=== PATIENT | male | born 1970 | race African-American/Black ===

== ENCOUNTER 2023-05-18 06:55 | Emergency (ER) | payer OTHER, SELFPAY ==
[2023-05-18] VITALS (27 sets, daily range): BP systolic 91–121; BP diastolic 59–78; PULSE 70–89; RESP 18; TEMP 36.6; O2SAT 89–99; BMI 21.7
--- NOTE | 2023-05-18 07:21 | CRLHL7_ITS ---
For Patients: As a result of the Century Cures Act, medical imaging exams and procedure reports are released immediately into your electronic medical record. You may view this report before your referring provider. If you have questions, please contact your health care provider. INDICATION: Chest pain. TECHNIQUE: Chest 2 views. COMPARISON: None. FINDINGS: Cardiovascular and mediastinum: Heart size and vasculature are normal in caliber and appearance. Lungs and pleural spaces: Coalescent airspace opacities in the right upper lung and perihilar right midlung as well as the left peripheral midlung superimposed upon a background of diffuse bilateral reticular opacities, the latter consistent with fibrosis. Bones and soft tissues: No significant findings. IMPRESSION: Bilateral multifocal airspace opacities consistent with pneumonia in the correct clinical setting. These findings are nonspecific, however. Clinical correlation is recommended. Follow-up chest radiographs are suggested in 6-8 weeks to document clearing. If there are no clinical findings to corroborate a diagnosis of pneumonia consider CT. Dictated by Jairo Alegria MD @ 05/18/2023 9:02:05 AM (Electronically Signed)
--- NOTE | 2023-05-18 07:27 | ED_ITS ---
HPI - Chest Pain General Chief Complaint: Chest Pain <Orin Garcia MD - Last Filed: 05/19/23 00:01> Stated Complaint: Chest pain <Orin Garcia MD - Last Filed: 05/19/23 00:01> Time Seen by Provider: 05/18/23 07:04 <Orin Garcia MD - Last Filed: 05/19/23 00:01> Source: patient and family <Orin Garcia MD - Last Filed: 05/19/23 00:01> Mode of arrival: ambulatory <Orin Garcia MD - Last Filed: 05/19/23 00:01> Limitations: language barrier (Daughter acts as medical instrument technician per patient request) <Orin Garcia MD - Last Filed: 05/19/23 00:01> History of Present Illness HPI narrative: 52-year-old male who reports a prior history of similar symptoms presents to the emergency department for 2 days of chest pain accompanied by shortness of breath. Chest discomfort started while at work 2 nights ago. Chest pain is in the central chest, radiating to the lateral left ribs. I do not think he is clearly understanding when I ask about exertional verses not exertional symptoms. He admits that he cannot read or write and has a very limited Education level. The shortness of breath is both while lying flat and with activity, worse with bending over. Chest pain is constant. Again, I do not think he is understanding when I ask about worsening with exertion or activities. He does not notice any swelling in his legs. He reports that he had similar symptoms 11 years ago in [place]. He was told that he had a ?bent vein? and he should get it checked out. It sounds as though he is never had a stress test or echo or any other advanced investigation. It sounds as though he has also presented to his primary care physician in [place] with similar symptoms and has had an EKG and what sounds like a chest x-ray. I do not have access to those records. I can not tell if he was referred for any other further studies and has failed to follow through or what the status of those may be. He does not take any prescription medications. He does not know of any family history of premature coronary artery disease. He denies any known history of rheumatic fever or known valvular heart disease. Does not take any anticoagulants. No history of DVT or PE. Past medical history benign per his report. Denies any prior surgeries. No long-term medications or allergies. No known family history of coronary artery disease. Nonsmoker, immigrant ROS is notable for the cardiac symptoms as above. Also notes some epigastric discomfort but seems to be correlating with his chest symptoms. <Orin Garcia MD - Last Filed: 05/19/23 00:01> Related Data Home Medications: Home Medications Medication Instructions Recorded Confirmed No Known Home Medications 05/18/23 05/18/23 <Orin Garcia MD - Last Filed: 05/19/23 00:01> Allergies/Adverse Reactions: Allergies Allergy/AdvReac Type Severity Reaction Status Date / Time No Known Drug Allergies Allergy Verified 05/18/23 07:04 <Orin Garcia MD - Last Filed: 05/19/23 00:01> Exam Const Vital Signs, click to edit/add: Vital Signs - 24 hr 05/18/23 07:01 05/18/23 08:19 05/18/23 08:30 Temperature 97.9 F Pulse Rate 78 Pulse Rate [Left Pulse Oximeter] 80 Respiratory Rate 18 Blood Pressure Blood Pressure [Right Upper Arm] 117/67 Pulse Oximetry 99 89 90 Oxygen Delivery Method Room Air 05/18/23 09:06 05/18/23 09:10 05/18/23 09:30 Temperature Pulse Rate 83 81 76 Pulse Rate [Left Pulse Oximeter] Respiratory Rate Blood Pressure 96/78 Blood Pressure [Right Upper Arm] Pulse Oximetry 89 89 94 Oxygen Delivery Method 05/18/23 09:31 05/18/23 10:00 05/18/23 10:01 Temperature Pulse Rate 81 70 71 Pulse Rate [Left Pulse Oximeter] Respiratory Rate Blood Pressure 104/71 103/65 Blood Pressure [Right Upper Arm] Pulse Oximetry 92 96 96 Oxygen Delivery Method 05/18/23 10:30 05/18/23 10:31 05/18/23 11:00 Temperature Pulse Rate 78 77 78 Pulse Rate [Left Pulse Oximeter] Respiratory Rate Blood Pressure 110/64 Blood Pressure [Right Upper Arm] Pulse Oximetry 99 94 98 Oxygen Delivery Method 05/18/23 11:01 05/18/23 11:01 05/18/23 11:30 Temperature Pulse Rate 81 81 82 Pulse Rate [Left Pulse Oximeter] Respiratory Rate Blood Pressure 109/64 109/64 Blood Pressure [Right Upper Arm] Pulse Oximetry 98 98 96 Oxygen Delivery Method 05/18/23 11:31 05/18/23 12:01 05/18/23 12:02 Temperature Pulse Rate 82 75 75 Pulse Rate [Left Pulse Oximeter] Respiratory Rate Blood Pressure 117/59 L 96/72 Blood Pressure [Right Upper Arm] Pulse Oximetry 99 91 92 Oxygen Delivery Method 05/18/23 12:30 05/18/23 12:31 05/18/23 13:00 Temperature Pulse Rate 89 86 78 Pulse Rate [Left Pulse Oximeter] Respiratory Rate Blood Pressure 121/75 Blood Pressure [Right Upper Arm] Pulse Oximetry 93 93 89 Oxygen Delivery Method 05/18/23 13:02 05/18/23 13:03 05/18/23 13:30 Temperature Pulse Rate 81 78 76 Pulse Rate [Left Pulse Oximeter] Respiratory Rate Blood Pressure 116/68 Blood Pressure [Right Upper Arm] Pulse Oximetry 92 92 94 Oxygen Delivery Method 05/18/23 13:31 05/18/23 13:32 05/18/23 14:00 Temperature Pulse Rate 89 88 77 Pulse Rate [Left Pulse Oximeter] Respiratory Rate Blood Pressure 117/75 Blood Pressure [Right Upper Arm] Pulse Oximetry 91 93 92 Oxygen Delivery Method 05/18/23 14:01 Temperature Pulse Rate 82 Pulse Rate [Left Pulse Oximeter] Respiratory Rate Blood Pressure 91/76 Blood Pressure [Right Upper Arm] Pulse Oximetry 91 Oxygen Delivery Method <Orin Garcia MD - Last Filed: 05/19/23 00:01> Vital Signs - 24 hr 05/18/23 07:01 05/18/23 08:19 05/18/23 08:30 Temperature 97.9 F Pulse Rate 78 Pulse Rate [Left Pulse Oximeter] 80 Respiratory Rate 18 Blood Pressure Blood Pressure [Right Upper Arm] 117/67 Pulse Oximetry 99 89 90 Oxygen Delivery Method Room Air 05/18/23 09:06 05/18/23 09:10 05/18/23 09:30 Temperature Pulse Rate 83 81 76 Pulse Rate [Left Pulse Oximeter] Respiratory Rate Blood Pressure 96/78 Blood Pressure [Right Upper Arm] Pulse Oximetry 89 89 94 Oxygen Delivery Method 05/18/23 09:31 05/18/23 10:00 05/18/23 10:01 Temperature Pulse Rate 81 70 71 Pulse Rate [Left Pulse Oximeter] Respiratory Rate Blood Pressure 104/71 103/65 Blood Pressure [Right Upper Arm] Pulse Oximetry 92 96 96 Oxygen Delivery Method 05/18/23 10:30 05/18/23 10:31 05/18/23 11:00 Temperature Pulse Rate 78 77 78 Pulse Rate [Left Pulse Oximeter] Respiratory Rate Blood Pressure 110/64 Blood Pressure [Right Upper Arm] Pulse Oximetry 99 94 98 Oxygen Delivery Method 05/18/23 11:01 05/18/23 11:01 05/18/23 11:30 Temperature Pulse Rate 81 81 82 Pulse Rate [Left Pulse Oximeter] Respiratory Rate Blood Pressure 109/64 109/64 Blood Pressure [Right Upper Arm] Pulse Oximetry 98 98 96 Oxygen Delivery Method 05/18/23 11:31 05/18/23 12:01 05/18/23 12:02 Temperature Pulse Rate 82 75 75 Pulse Rate [Left Pulse Oximeter] Respiratory Rate Blood Pressure 117/59 L 96/72 Blood Pressure [Right Upper Arm] Pulse Oximetry 99 91 92 Oxygen Delivery Method 05/18/23 12:30 05/18/23 12:31 05/18/23 13:00 Temperature Pulse Rate 89 86 78 Pulse Rate [Left Pulse Oximeter] Respiratory Rate Blood Pressure 121/75 Blood Pressure [Right Upper Arm] Pulse Oximetry 93 93 89 Oxygen Delivery Method 05/18/23 13:02 05/18/23 13:03 05/18/23 13:30 Temperature Pulse Rate 81 78 76 Pulse Rate [Left Pulse Oximeter] Respiratory Rate Blood Pressure 116/68 Blood Pressure [Right Upper Arm] Pulse Oximetry 92 92 94 Oxygen Delivery Method 05/18/23 13:31 05/18/23 13:32 05/18/23 14:00 Temperature Pulse Rate 89 88 77 Pulse Rate [Left Pulse Oximeter] Respiratory Rate Blood Pressure 117/75 Blood Pressure [Right Upper Arm] Pulse Oximetry 91 93 92 Oxygen Delivery Method 05/18/23 14:01 Temperature Pulse Rate 82 Pulse Rate [Left Pulse Oximeter] Respiratory Rate Blood Pressure 91/76 Blood Pressure [Right Upper Arm] Pulse Oximetry 91 Oxygen Delivery Method <Max Campa MD - Last Filed: 05/18/23 10:35> Documenting provider has reviewed patient's vital signs: yes <Orin Garcia MD - Last Filed: 05/19/23 00:01> Common normals: no apparent distress <Orin Garcia MD - Last Filed: 05/19/23 00:01> General appearance: cooperative <MD Cain Uribe Last Filed: 05/19/23 00:01> Other: Fairly uncooperative but not a very good historian due to it seems to be education level. Daughter is very helpful and translates per patient request. <Orin Garcia MD - Last Filed: 05/19/23 00:01> HENMT Common normals: normocephalic and head/scalp atraumatic <Orin Garcia MD - Last Filed: 05/19/23 00:01> Head and scalp: normocephalic and atraumatic <Orin Garcai MD - Last Filed: 05/19/23 00:01> Mouth: oral and palatal mucosa normal <MD Cain Uribe Last Filed: 05/19/23 00:01> Throat: posterior oropharynx normal <MD Cain Uribe Last Filed: 05/19/23 00:01> Eye Common normals: conjunctivae normal <MD Cain Uribe Last Filed: 05/19/23 00:01> General eye: normal appearance of both eyes <MD Cain Uribe Last Filed: 05/19/23 00:01> Conjunctiva: conjunctiva(e) normal <MD Cain Uribe Last Filed: 05/19/23 00:01> Resp Common normals: normal respiratory effort, no use of accessory muscles and clear to auscultation bilaterally <MD Cain Uribe Last Filed: 05/19/23 00:01> Effort & inspection: able to speak in complete sentences <MD Cain Uribe Last Filed: 05/19/23 00:01> Auscultation: clear to auscultation bilaterally <MD Cain Uribe Last Filed: 05/19/23 00:01> Cardio Common normals: regular rate and regular rhythm <Orin Garcia MD - Last Filed: 05/19/23 00:01> Rate: regular rate <Orin Garcia MD - Last Filed: 05/19/23 00:01> Rhythm: regular rhythm <Orin Garcia MD - Last Filed: 05/19/23 00:01> Other: Loud systolic murmur both of what sounds to be stenosis and regurgitation, aortic valve. No obvious gallop. PMI is displaced to the left. <Orin Garcia MD - Last Filed: 05/19/23 00:01> GI Common normals: Normal to inspection, nondistended, normoactive bowel sounds present, soft to palpation, non-tender, no hepatosplenomegaly and no masses <Orin Garcia MD - Last Filed: 05/19/23 00:01> Palpation: soft and no hepatosplenomegaly <Orin Garcia MD - Last Filed: 05/19/23 00:01> Extremity Common normals: normal capillary refill and no pedal edema <Orin Garcia MD - Last Filed: 05/19/23 00:01> Neuro Motor exam: strength 5/5 throughout and no movement abnormalities noted <Orin Garcia MD - Last Filed: 05/19/23 00:01> Psych Attitude: engaged <Orin Garcia MD - Last Filed: 05/19/23 00:01> Mood and affect: euthymic mood <Orin Garcia MD - Last Filed: 05/19/23 00:01> Skin Common normals: no rashes or lesions noted <Orin Garcia MD - Last Filed: 05/19/23 00:01> General skin exam: no rashes or lesions noted <Orin Garcia MD - Last Filed: 05/19/23 00:01> Course Course Hospital Course: Nonexertional chest pain in the setting of a loud aortic murmur concerning for critical aortic stenosis, cardiomyopathy. Ice suspect that he may have been told these things before but has had some disconnect in how to follow-up for additional workup. I have ordered an echo, have spoken with the radiology team. Unfortunately the echo team is not available for about another 1/2 hour to even take calls, will need to pass this along to my day shift partner. Will give aspirin 325 p.o. x1. I do not think that this is necessarily acute coronary syndrome and will withhold trying nitroglycerin, especially as his pressures are quite soft. Basic labs to look at troponins, BNP, chest x-ray, electrolytes, CBC. I do think an echo is prudent today and he may need to be transferred to facilitate this if it cannot be arranged at our facility. Awaiting findings. May need to speak with Cardiology based on outcomes. Will hand over care to incoming day shift partner. <Orin Garcia MD - Last Filed: 05/19/23 00:01> Vital Signs Vital signs: Initial Vital Signs Temperature 97.9 F 05/18/23 07:01 Temperature Source Temporal Artery Scan 05/18/23 07:01 Pulse Rate 80 05/18/23 07:01 Respiratory Rate 18 05/18/23 07:01 Blood Pressure 117/67 05/18/23 07:01 Blood Pressure Mean 83 05/18/23 07:01 Blood Pressure Position Sitting 05/18/23 07:01 Pulse Oximetry 99 05/18/23 07:01 Oxygen Delivery Method Room Air 05/18/23 07:01 Vital Signs Temperature 97.9 F 05/18/23 07:01 Pulse Rate 80 05/18/23 07:01 Respiratory Rate 18 05/18/23 07:01 Blood Pressure 117/67 05/18/23 07:01 Pulse Oximetry 99 05/18/23 07:01 Oxygen Delivery Method Room Air 05/18/23 07:01 Temperature 97.9 F 05/18/23 07:01 Pulse Rate 82 05/18/23 14:01 Respiratory Rate 18 05/18/23 07:01 Blood Pressure 91/76 05/18/23 14:01 Pulse Oximetry 91 05/18/23 14:01 Oxygen Delivery Method Room Air 05/18/23 07:01 <Orin Garcia MD - Last Filed: 05/19/23 00:01> Initial Vital Signs Temperature 97.9 F 05/18/23 07:01 Temperature Source Temporal Artery Scan 05/18/23 07:01 Pulse Rate 80 05/18/23 07:01 Respiratory Rate 18 05/18/23 07:01 Blood Pressure 117/67 05/18/23 07:01 Blood Pressure Mean 83 05/18/23 07:01 Blood Pressure Position Sitting 05/18/23 07:01 Pulse Oximetry 99 05/18/23 07:01 Oxygen Delivery Method Room Air 05/18/23 07:01 Vital Signs Temperature 97.9 F 05/18/23 07:01 Pulse Rate 80 05/18/23 07:01 Respiratory Rate 18 05/18/23 07:01 Blood Pressure 117/67 05/18/23 07:01 Pulse Oximetry 99 05/18/23 07:01 Oxygen Delivery Method Room Air 05/18/23 07:01 Temperature 97.9 F 05/18/23 07:01 Pulse Rate 82 05/18/23 14:01 Respiratory Rate 18 05/18/23 07:01 Blood Pressure 91/76 05/18/23 14:01 Pulse Oximetry 91 05/18/23 14:01 Oxygen Delivery Method Room Air 05/18/23 07:01 <Max Campa MD - Last Filed: 05/18/23 10:35> MDM - Chest Pain MDM Narrative Medical decision making narrative: Care for this patient was transferred to ri at the end of Dr. Garcia's shift. This patient has chest pain and shortness of breath. He has a very loud cardiac murmur so an echocardiogram was ordered. Results returned with evidence of severe mitral regurgitation and severe aortic stenosis with moderate aortic insufficiency. He also has a ruptured chordae tendonae. This patient is maintaining sufficient vital signs but does have some hypoxia with oximetry at 89%. He is on nasal cannula oxygen. I did speak with the gauge maker apprentice at [facility], Dr. Rosas, who recommends transfer for further evaluation treatment. I spoke then with Dr. Bernabe, fisherman helper, who agrees to his transfer there to intensive care. This transfer should be able to occur and less than 4 hours. There are no other beds available. <Max Campa MD - Last Filed: 05/18/23 10:35> Lab Data Attestation: I reviewed the patient's lab results. <Orin Garcia MD - Last Filed: 05/19/23 00:01> Labs: Lab Results 05/18/23 05/18/23 Range/Units 07:21 07:30 WBC 9.09 (4.50-11.00) K/uL RBC 3.95 L (4.30-5.90) m/uL Hgb 12.2 L (13.5-17.5) gm/dL Hct 36.5 L (37.0-53.0) % MCV 92 (80-100) fL MCH 31 (26-34) pg MCHC 33 (32-36) gm/dL RDW Coeff of Jamee 13.5 (11.5-15.5) % Plt Count 155 (140-440) K/uL Neut % (Auto) 61.4 (42.0-72.0) % Lymph % (Auto) 18.4 L (20-44) % Will % (Auto) 8.3 (0.0-11.0) % Eos % (Auto) 11.4 H (0.0-7.0) % Baso % (Auto) 0.3 (0.0-3.0) % Neut # (Auto) 5.58 (1.7-7.0) K/uL Lymph # (Auto) 1.70 (0.90-2.90) K/uL Will # (Auto) 0.80 (0.00-0.90) K/UL Eos # (Auto) 1.00 H (0.00-0.50) K/uL Baso # (Auto) 0.03 (0.00-0.30) K/uL Abs Immat Gran (auto) 0.02 (0.00-0.30) K/uL Imm/Tot Granulo (auto) 0.2 % Sodium 138 (135-149) mmol/L Potassium 3.5 L (3.6-5.1) mmol/L Chloride 103 (96-114) mmol/L Carbon Dioxide 25 (20-32) mmol/L BUN 16 (7-30) mg/dL Creatinine 0.7 (0.5-1.5) mg/dL Estimated Creat Clear 116.42 Estimated GFR 111 ml/min Glucose 110 (60-115) mg/dL Calcium 8.7 (8.4-10.6) mg/dL Troponin I 0.08 H* (0.01-0.04) ng/mL C-Reactive Protein 8.2 H (0.5-1.0) mg/dL NT-Pro-B Natriuret Pep 2100 pg/mL POC Troponin I 0.06 H (0.01-0.04) ng/ml <Orin Garcia MD - Last Filed: 05/19/23 00:01> Lab Results 05/18/23 05/18/23 Range/Units 07:21 07:30 WBC 9.09 (4.50-11.00) K/uL RBC 3.95 L (4.30-5.90) m/uL Hgb 12.2 L (13.5-17.5) gm/dL Hct 36.5 L (37.0-53.0) % MCV 92 (80-100) fL MCH 31 (26-34) pg MCHC 33 (32-36) gm/dL RDW Coeff of Jamee 13.5 (11.5-15.5) % Plt Count 155 (140-440) K/uL Neut % (Auto) 61.4 (42.0-72.0) % Lymph % (Auto) 18.4 L (20-44) % Will % (Auto) 8.3 (0.0-11.0) % Eos % (Auto) 11.4 H (0.0-7.0) % Baso % (Auto) 0.3 (0.0-3.0) % Neut # (Auto) 5.58 (1.7-7.0) K/uL Lymph # (Auto) 1.70 (0.90-2.90) K/uL Will # (Auto) 0.80 (0.00-0.90) K/UL Eos # (Auto) 1.00 H (0.00-0.50) K/uL Baso # (Auto) 0.03 (0.00-0.30) K/uL Abs Immat Gran (auto) 0.02 (0.00-0.30) K/uL Imm/Tot Granulo (auto) 0.2 % Sodium 138 (135-149) mmol/L Potassium 3.5 L (3.6-5.1) mmol/L Chloride 103 (96-114) mmol/L Carbon Dioxide 25 (20-32) mmol/L BUN 16 (7-30) mg/dL Creatinine 0.7 (0.5-1.5) mg/dL Estimated Creat Clear 116.42 Estimated GFR 111 ml/min Glucose 110 (60-115) mg/dL Calcium 8.7 (8.4-10.6) mg/dL Troponin I 0.08 H* (0.01-0.04) ng/mL C-Reactive Protein 8.2 H (0.5-1.0) mg/dL NT-Pro-B Natriuret Pep 2100 pg/mL POC Troponin I 0.06 H (0.01-0.04) ng/ml <Max Campa MD - Last Filed: 05/18/23 10:35> ECG Data Attestation: I personally reviewed and interpreted this ECG as follows: <Orin Garcia MD - Last Filed: 05/19/23 00:01> Prior ECG tracings: not available for review <Orin Garcia MD - Last Filed: 05/19/23 00:01> Interpretation: Normal sinus rhythm, rate of 85. There is some subtle ST elevation in V2 and V3 as well as a little depression in lead 2 and V6. Overall findings looking like left ventricular hypertrophy, electrical anomalies. [place] does seem leftward deviated. <Orin Garcia MD - Last Filed: 05/19/23 00:01> Discharge Plan Discharge Clinical Impression: Aortic valve disease, Mitral regurgitation and aortic stenosis, Chordae tendineae rupture <Orin Garcia MD - Last Filed: 05/19/23 00:01> Patient Disposition: [facility] <Orin Garcia MD - Last Filed: 05/19/23 00:01> Condition: Unchanged <Orin Garcia MD - Last Filed: 05/19/23 00:01> Prescriptions: No Action No Known Home Medications <Orin Garcia MD - Last Filed: 05/19/23 00:01> Stand Alone Forms: [facility] Info Instructions <Orin Garcia MD - Last Filed: 05/19/23 00:01>
[2023-05-18 07:45] LABS: Basophils Absolute Auto 0.03 K/uL (0.00-0.30); Basophils Percent Auto 0.3 % (0.0-3.0); Eosinophils Percent Auto 11.4 % (0.0-7.0); Hematocrit 36.5 % (37.0-53.0); Hemoglobin* 12.2 gm/dL (13.5-17.5); Immature Granulocytes Abs Auto 0.02 K/uL (0.00-0.30); Immature Granulocytes Pct Auto 0.2 %; Lymphocytes Percent Auto 18.4 % (20-44); Mean Corpuscular HGB Conc 33 gm/dL (32-36); Mean Corpuscular Hemoglobin 31 pg (26-34); Mean Corpuscular Volume 92 fL (80-100); Monocytes Percent Auto 8.3 % (0.0-11.0); Neutrophils Absolute Auto 5.58 K/uL (1.7-7.0); Neutrophils Percent Auto 61.4 % (42.0-72.0); Platelet Count* 155 K/uL (140-440); RDW Coefficient of Variation % 13.5 % (11.5-15.5); Red Blood Count 3.95 m/uL (4.30-5.90); White Blood Count* 9.09 K/uL (4.50-11.00)
[2023-05-18 07:46] LABS: Slide Review Reflex No
[2023-05-18 08:01] LABS: Chloride* 103 mmol/L (96-114); Potassium* 3.5 mmol/L (3.6-5.1); Sodium* 138 mmol/L (135-149)
[2023-05-18 08:04] LABS: Creatinine* 0.7 mg/dL (0.5-1.5); Est. Creatinine Clearance* 116.42; Estimated Glomerular Filt Rate 111 ml/min
[2023-05-18 08:05] LABS: Blood Urea Nitrogen* 16 mg/dL (7-30); Calcium* 8.7 mg/dL (8.4-10.6); Carbon Dioxide* 25 mmol/L (20-32); Glucose* 110 mg/dL (60-115)
[2023-05-18 08:08] LABS: C Reactive Protein* 8.2 mg/dL (0.5-1.0)
[2023-05-18 08:19] LABS: NT Pro B Type NatriureticPept* 2100 pg/mL; Troponin I* 0.08 ng/mL (0.01-0.04)
[2023-05-18 08:21] LABS: Troponin, Point-of-Care* 0.06 ng/ml (0.01-0.04)
--- NOTE | 2023-05-18 11:05 | ED.NURSE ---
continues no change in condition. waiting for bed placement
== END 2023-05-18 15:05 | disposition short-term general hospital (02) ==
PROVIDERS: Emergency Provider Family Medicine
DX: I35.9 Nonrheumatic aortic valve disorder, unspecified (principal); I35.0 Nonrheumatic aortic (valve) stenosis; I38 Endocarditis, valve unspecified; I51.1 Rupture of chordae tendineae, not elsewhere classified
CPT/HCPCS: 36415; 71046; 80048; 83880; 84484; 85025; 86140; 93005; 93306; 99284; 99285

== ENCOUNTER 2023-05-18 14:30 | Outpatient (CLI) | payer MEDICAID, SELFPAY | END 2023-05-18 14:31 | disposition home or self-care (01) | LOC: AMB 05-23 10:06 | PROVIDERS: Visit Provider Emergency Medicine Emergency Medical Services | DX: I35.9 Nonrheumatic aortic valve disorder, unspecified (principal); I34.0 Nonrheumatic mitral (valve) insufficiency | CPT/HCPCS: A0425; A0426 ==